=== PATIENT | male | born 1970 | race American Indian/Alaskan Native ===

== ENCOUNTER 2020-11-20 08:01 | Day surgery (SDC) | payer MEDICAID ==
[~2020-11-20 08:01] MED LIST: BUPIVACAINE/PF (0.5%) 5 MG/1 ML 30 ML VIAL INFILTRATI ONE; SODIUM CHLORIDE 0.9% 250ML 0 ML ONE; SODIUM CHLORIDE 0.9% 250ML 250 ML ONE; ceFAZolin/Water 2 GM/20 ML 2 GM/20 ML SYRINGE IV NR
[2020-11-20] MEDS ORDERED: HYDROmorphone 1 MG/1 ML INJ IV PRN ×2 (08:40→09:00)
[2020-11-20] MEDS ORDERED: ONDANSETRON 4 MG/2 ML INJ IV PRN (08:40)
--- NOTE | 2020-11-20 08:41 | Anesthesia Day of Surgery ---
Anesthesia Day of Surgery - Day of Surgery Patient Examined: Yes Patient H&P Reviewed: Yes Patient is NPO: Yes Beta Blockers: Yes
--- NOTE | 2020-11-20 08:44 | Anesthesia Consultation ---
Anesthesia Consult and Med Hx Date of service: 11/20/20 - Airway Anesthetic Teeth Evaluation: Poor (Missing) ROM Head & Neck: Adequate Mental/Hyoid Distance: Adequate Mallampati Class: Class III Intubation Access Assessment: Probably Good - Pre-Operative Health Status ASA Pre-Surgery Classification: ASA3 Proposed Anesthetic Plan: General (Pt requests GA) - Pulmonary Hx Smoking: No Hx Asthma: No COPD: No Hx Pneumonia: No Hx Sleep Apnea: No - Cardiovascular System Hx Hypertension: Yes (CHF in chart (Aug 2019); pt denies) Hx Heart Attack/AMI: No Hx Pacemaker: No Hx Internal Defibrillator: No Hx Heart Murmur: No - Central Nervous System Hx Neuromuscular Disorder: Yes (Pt is blind) Hx Seizures: No Hx Back Pain: No Hx Psychiatric Problems: No - Gastrointestinal Hx Gastroesophageal Reflux Disease: No - Endocrine Hx Renal Disease: Yes Hx End Stage Renal Disease: Yes (Last HD yesterday) Hx Cirrhosis: No Hx Liver Disease: No Hx Non-Insulin Dependent Diabetes: Yes - Hematic Hx Anemia: Yes Hx Sickle Cell Disease: No - Other Systems Hx Alcohol Use: No Hx Substance Use: No Hx Cancer: No Hx Obesity: No
[2020-11-20] MEDS ORDERED: HYDROmorphone 1 MG/1 ML INJ ONE (08:56)
[2020-11-20] MEDS ORDERED: propofoL 200 MG/20 ML VIAL IV ONE (08:56)
[2020-11-20] MEDS ORDERED: LIDOCAINE MPF (2%) 20 MG/1 ML VIAL 5 ML ONE (08:57)
[2020-11-20] MEDS ORDERED: SODIUM CHLORIDE 0.9% 1000 ML 1,000 ML IV SCH (09:00)
[2020-11-20] MEDS ORDERED: MIDAZOLAM 2 MG/2 ML INJ IV NR (09:00)
[2020-11-20] MEDS ORDERED: HEPARIN 10,000 UNITS/10 ML VIAL IV ONE ×2 (09:47→11:19)
[2020-11-20] MEDS ORDERED: SODIUM CHLORIDE 0.9% 500 ML IVPB IRRIGATION ONE ×2 (09:47→11:19)
[2020-11-20] MEDS ORDERED: SODIUM CHLORIDE 0.9% 250 ML IVPB IV ONE ×2 (09:48→11:19)
[2020-11-20] MEDS ORDERED: rifAMPin 600 MG VIAL IV ONE ×2 (09:48→11:19)
[2020-11-20 09:55] LABS: Hematocrit 36.2 % (35.5-45.6); Hemoglobin 12.1 gm/dl (11.8-15.2); Mean Corpuscular HGB Conc 34 % (32-34); Mean Corpuscular Volume 86 fl (84-94); Platelet Count 219 K/mm3 (140-440); Red Blood Count 4.22 M/mm3 (3.65-5.03); Red Cell Distribution Width 18.3 % (13.2-15.2)
[2020-11-20 10:02] LABS: Calcium 9.2 mg/dL (8.4-10.2)
[2020-11-20] MEDS ORDERED: BUPIVACAINE/PF (0.5%) 5 MG/1 ML 30 ML VIAL INFILTRATI ONE ×2 (11:07)
--- NOTE | 2020-11-20 12:33 | Short Stay Summary ---
Short Stay Documentation Date of service: 11/20/20 Narrative H&P: See H&P - History H&P: obtained from office - Allergies and Medications Current Medications: Allergies No Known Allergies Allergy (Verified 11/20/20 09:29) Home Medications Medication Instructions Recorded Confirmed Last Taken Type AtorvaSTATin [Lipitor] 40 mg PO QHS 11/20/20 11/20/20 11/19/20 20:00 History Furosemide [Lasix TAB] 80 mg PO BID 11/20/20 11/20/20 11/19/20 20:00 History ISOSORBIDE MONOnitrate [Imdur ER] 60 mg PO QDAY 11/20/20 11/20/20 11/20/20 05:00 History Losartan [Cozaar] 100 mg PO QDAY 11/20/20 11/20/20 11/20/20 05:00 History NIFEdipine [Nifedipine ER] 90 mg PO BID 11/20/20 11/20/20 11/20/20 05:00 History carvediloL [Coreg] 25 mg PO BID 11/20/20 11/20/20 11/20/20 05:00 History glipiZIDE [Glucotrol] 5 mg PO BID 11/20/20 11/20/20 11/19/20 17:00 History hydrALAZINE [Apresoline TAB] 100 mg PO TID 11/20/20 11/20/20 11/20/20 05:00 History Active Medications Hydromorphone HCl (Hydromorphone 1 Mg/1 Ml Inj) 0.25 mg IV Q10MIN PRN PRN Reason: Pain, Moderate (4-6) Stop: 11/20/20 22:00 Hydromorphone HCl (Hydromorphone 1 Mg/1 Ml Inj) 0.5 mg IV Q10MIN PRN PRN Reason: Pain , Severe (7-10) Stop: 11/20/20 22:00 Cefazolin Sodium (Ancef/Sterile Water 2 Gm/20 Ml) 2 gm in 20 mls @ 80 mls/hr IV PREOP NR; Protocol Stop: 11/20/20 23:59 Sodium Chloride (Nacl 0.9% 1000 Ml) 1,000 mls @ 42 mls/hr IV DIRECT SANDRA Last Admin: 11/20/20 09:15 Dose: 42 mls/hr Documented by: Midazolam HCl (Midazolam 2 Mg/2 Ml Inj) 2 mg IV PREOP NR Stop: 11/20/20 23:59 Last Admin: 11/20/20 10:13 Dose: 2 mg Documented by: Ondansetron HCl (Ondansetron 4 Mg/2 Ml Inj) 4 mg IV ONCE PRN PRN Reason: Nausea And Vomiting Stop: 11/20/20 18:00 - Brief post op/procedure progress note Date of procedure: 11/20/20 Pre-op diagnosis: End-Stage Renal Disease Post-op diagnosis: same Procedure: Creation of Left Brachial Artery to Left Axillary Vein Arteriovenous Graft with 7 mm Bovine Artegraft Anesthesia: GETA Surgeon: JAN ARELLANO Estimated blood loss: minimal Pathology: none Condition: stable - Disposition Condition at discharge: Good Disposition: DC-01 TO HOME OR SELFCARE Short Stay Discharge Plan Activity: other (No Heavy Lifting the Left Arm For 2 Weeks) Wound: open to air, keep clean and dry, other (Okay to wash the wound with soap and water but do not soak in water for 2 weeks.) Follow up with: JAN ARELLANO MD [Staff Physician] - 14 Days Prescriptions: HYDROcodone/APAP 7.5-325 [[place] 7.5/325] 1 each PO Q6HR PRN #30 tablet PRN Reason: Pain
--- NOTE | 2020-11-20 12:35 | Operative Report ---
Operative Report Operative Report: Date of procedure: 11/20/2020 Pre-operative diagnosis: End-Stage Renal Disease Post-operative diagnosis: Same Procedure(s): 1. Creation of Left Brachial Artery to Axillary Vein AV Graft with 7 mm Bovine Graft Artergraft Surgeon: Osvaldo Espinosa MD Operations And Maintenance Supervisor: None Anesthesia: General Endotracheal Anesthesia EBL: Minimal Counts: Correct Complications: None Condition: Stable Findings: Successful Creation of Left Arm AV Graft with Palpable Thrill and Palpable Radial Pulse at the Completion of the Case. Specimen: None Indication: The patient is a 50-year-old male with a history of end-stage renal disease who is currently on hemodialysis through a right internal jugular permacath. He had a vein mapping and is not a candidate for an arteriovenous fistula so he was offered an arteriovenous graft. He was given the risk, benefits, and alternative procedures and consented to the procedure. Description of Procedure: The patient was brought to the operating room and laid in supine position. After general endotracheal anesthesia was achieved the patient's left arm was prepped and draped in normal sterile fashion. A longitudinal incision was made on the medial aspect of the arm just proximal to the antecubital crease and carried down to the brachial artery using sharp dissection. The brachial artery was dissected out circumferentially both proximally and distally and controlled with vessel loops. A second incision was created in longitudinal fashion on the medial aspect of the arm just distal to the axillary crease and carried down to the axillary vein using sharp dissection. Axillary vein was dissected out circumferentially and controlled with a vessel loop. I then used a Fidelina-Wick tunneler to tunnel from the brachial artery incision to the axillary vein incision and then put an 7 mm bovine through the tunnel. I infused with heparinized saline to ensure that it was not twisted or kinked. I put the brachial artery vessel loops on tension controlling the flow and then created an arteriotomy using an 11 blade and Bernstein scissors. I beveled the graft and created an end-to-side anastomosis using 6-0 Prolene running fashion. I clamped the graft just proximal to the anastomosis and then released the vessel loops restoring flow in the brachial artery. I placed quick clot in incision to achieve hemostasis. I cut the proximal end of the graft to the appropriate length and beveled the graft in preparation for a venous anastomosis. I controlled the axillary vein a Satinsky clamp and created a venotomy using an 11 blade and Bernstein scissors. I created an end to side anastomosis using a 6-0 Prolene in running fashion. Prior to completing the anastomosis I flushed the graft to ensure there was no thrombus and then completed the anastamosis. I released all clamps allowing flow into the AV graft which had an excellent thrill. I packed the wound with quick clot to achieve hemostasis. I anesthetized both wounds with 0.5% Marcaine and then closed both wounds in 2 layers using 3-0 Vicryl in running fashion in the deep dermal layer and 4-0 Monocryl in running fashion the subcuticular layer. I dressed both wounds with Dermabond. The patient tolerated the procedure well all sponge, needle, and instrument counts were correct. The patient was taken to recovery in stable condition.
[2020-11-20 13:31] VITALS: BP 138/67
--- NOTE | 2020-11-20 13:44 | Post Anesthesia Evaluation ---
- Post Anesthesia Evaluation Patient Participated: Yes Airway Patent: Yes Stable Respiratory Function: Yes Nausea/Vomiting: No Temp > 96.8F: Yes Pain Manageable: Yes Adequeate Hydration: Yes Anesthesia Complications: No Block Receding Appropriately: Not Applicable Patient on Ventilator: No
== END 2020-11-20 08:02 | disposition home or self-care (01) ==
LOC: OR 08:01
PROVIDERS: ATTEND Surgery Vascular Surgery
DX: I13.2 Hypertensive heart and chronic kidney disease with heart failure and with stage 5 chronic kidney disease, or end stage renal disease (principal); E11.22 Type 2 diabetes mellitus with diabetic chronic kidney disease; N18.6 End stage renal disease; I50.9 Heart failure, unspecified; Z79.899 Other long term (current) drug therapy; Z98.41 Cataract extraction status, right eye; Z98.890 Other specified postprocedural states; Z83.3 Family history of diabetes mellitus; Z82.49 Family history of ischemic heart disease and other diseases of the circulatory system
CPT/HCPCS: 36415; 36830; 80048; 82962; 85025; C1768; J0690; J1170; J1644; J2250; J2704; J3490; J7030; J7040; J7050